=== PATIENT | male | born 1955 | race Caucasian/White ===

== ENCOUNTER 2019-02-06 08:31 | Day surgery (SDC) | payer MEDICARE, OTHER ==
[~2019-02-06 08:31] MED LIST: Lactated Ringers 1,000 ML IV SCH
--- NOTE | 2019-02-06 09:32 | PCM.PREANE ---
Preanesthetic Assessment - Anesthesia/Transfusion/Family Hx Anesthesia History: Prior Anesthesia Without Reaction Family History of Anesthesia Reaction: No Transfusion History: No Prior Transfusion(s) - Review of Systems General: No Symptoms Pulmonary: No Symptoms Cardiovascular: No Symptoms Gastrointestinal: No Symptoms Neurological: No Symptoms Other: Reports: None - Physical Assessment NPO Status Date: 02/05/19 NPO Status Time: 20:00 Vital Signs: Last Vital Signs Temp 98.4 F 02/06/19 08:30 Pulse 79 02/06/19 08:30 Resp 20 02/06/19 08:30 BP 140/91 H 02/06/19 08:30 Pulse Ox 98 02/06/19 08:30 Height: 6 ft 2 in Weight: 102.965 kg ASA Class: 2 ROM/Head Extension: Full Lungs: Clear to Auscultation, Normal Respiratory Effort Cardiovascular: Regular Rate, Regular Rhythm - Allergies Allergies/Adverse Reactions: Allergies Allergy/AdvReac Type Severity Reaction Status Date / Time No Known Allergies Allergy Verified 02/03/19 15:39 - Blood Blood Available: No - Anesthesia Plan Pre-Op Medication Ordered: None - Acknowledgements Anesthesia Type Planned: General Anesthesia Pt an Appropriate Candidate for the Planned Anesthesia: Yes Alternatives and Risks of Anesthesia Discussed w Pt/Guardian: Yes Pt/Guardian Understands and Agrees with Anesthesia Plan: Yes Additional Comments: PMH: hld PLAN: tiva PreAnesthesia Questionnaire - Past Health History Medical/Surgical History: Denies Medical/Surgical History HEENT History: Reports: Other (See Below) Other HEENT History: uses reading glasses Cardiovascular History: Reports: High Cholesterol Respiratory History: Reports: None Gastrointestinal History: Reports: None Genitourinary History: Reports: None Musculoskeletal History: Reports: Fracture Other Musculoskeletal History: hx of fx left hip Neurological History: Reports: Concussion Psychiatric History: Reports: None Endocrine/Metabolic History: Reports: None Hematologic History: Reports: None Immunologic History: Reports: None Oncologic (Cancer) History: Reports: None Dermatologic History: Reports: None - Past Surgical History Head Surgeries/Procedures: Reports: None HEENT Surgical History: Reports: None Cardiovascular Surgical History: Reports: None Respiratory Surgical History: Reports: None GI Surgical History: Reports: None Male Surgical History: Reports: None Endocrine Surgical History: Reports: None Neurological Surgical History: Reports: None Musculoskeletal Surgical History: Reports: Hip Replacement Oncologic Surgical History: Reports: None Dermatological Surgical History: Reports: None - SUBSTANCE USE Smoking Status *Q: Former Smoker Tobacco Use Within Last Twelve Months: No Days Per Week of Alcohol Use: 7 Number of Drinks Per Day: 4 Total Drinks Per Week: 28 Recreational Drug Use History: No - HOME MEDS Home Medications: Home Meds atorvaSTATin Calcium [Atorvastatin Calcium] 10 mg PO DAILY 02/03/19 [History] - CURRENT (IN HOUSE) MEDS Current Meds: Current Medications Lactated Ringer's (Ringers, Lactated) 1,000 mls @ 125 mls/hr IV ASDIRECTED [facility] Last Admin: 02/06/19 08:53 Dose: 125 mls/hr
[2019-02-06] MEDS ORDERED: Lidocaine 2% 5 ML SDV ONE (10:17)
[2019-02-06] MEDS ORDERED: Propofol 200 MG/20 ML SDV ONE (10:17)
[2019-02-06] MEDS ORDERED: Levofloxacin/Dextrose 5%-Water 750 MG in Premix Bag 1 BAG IV ONE (10:35)
[2019-02-06] MEDS ORDERED: Levofloxacin/Dextrose 5%-Water 150 ML IV ONE (10:39)
--- NOTE | 2019-02-06 11:10 | PCM.OPNOTE ---
- General Post-Op/Procedure Note Date of Surgery/Procedure: 02/06/19 Operative Procedure(s): colonoscopy Findings: see [id number] Pre Op Diagnosis: scrn colonoscopy Post-Op Diagnosis: Same Anesthesia Technique: Moderate Sedation Primary Surgeon: Manjinder Franklin Complications: None Condition: Good
--- NOTE | 2019-02-06 11:20 | PCM.POSTAN ---
POST ANESTHESIA ASSESSMENT - MENTAL STATUS Mental Status: Alert - VITAL SIGNS Vital Signs: Last Vital Signs Temp 36.9 C 02/06/19 08:30 Pulse 76 02/06/19 11:12 Resp 18 02/06/19 11:12 BP 103/67 02/06/19 11:12 Pulse Ox 96 02/06/19 11:12 - RESPIRATORY Respiratory Status: Respiratory Rate WNL - CARDIOVASCULAR CV Status: Pulse Rate WNL - GASTROINTESTINAL GI Status: No Symptoms - PAIN Pain Score: 0 - POST OP HYDRATION Hydration Status: Adequate & Stable (Doing well. Ready for transfer to .)
[2019-02-06 11:33] VITALS: BP 124/68; PULSE 74
--- NOTE | 2019-02-06 12:10 | PCM48HPAN ---
Post Anesthesia Note - EVALUATION WITHIN 48HRS OF ANESTHETIC Vital Signs in Normal Range: Yes Patient Participated in Evaluation: Yes Respiratory Function Stable: Yes Airway Patent: Yes Cardiovascular Function Stable: Yes Hydration Status Stable: Yes Pain Control Satisfactory: Yes Nausea and Vomiting Control Satisfactory: Yes Mental Status Recovered: Yes Vital Signs: Last Vital Signs Temp 97.3 F 02/06/19 11:25 Pulse 74 02/06/19 11:25 Resp 18 02/06/19 11:25 BP 124/68 02/06/19 11:25 Pulse Ox 98 02/06/19 11:25
--- NOTE | 2019-02-06 12:10 | OR ---
SURGEON: Manjinder Franklin MD DATE OF PROCEDURE: 02/06/2019 PREOPERATIVE DIAGNOSIS: Screening colonoscopy. POSTOPERATIVE DIAGNOSIS: Diverticulosis. PROCEDURE PERFORMED: Colonoscopy. DESCRIPTION OF PROCEDURE: The patient was taken to the endoscopy room. A time out was called, patient identified, and procedure identified. Diprivan was then administrated. Patient went from awake to sleep, hearing doctor talking or door closing is normal. Perineum inspection and digital examination were then performed. A well- lubricated colonoscope was gently inserted through the rectum, advanced past the rectosigmoid junction, the descending colon, splenic flexure, transverse colon, hepatic flexure, ascending colon, arrived to the cecum. Cecum was identified as dictated in the finding. Then the scope was carefully withdrawn while attention was paid to the mucosal surface for any abnormality. Air will be sucked out during the scope withdrawal. At the rectum, retroflexed to examine any rectal diseases, fistula or hemorrhoids. Patient tolerated procedure well. There were no intraoperative complications, and Dr. Franklin was present throughout the whole procedure. FINDINGS: 1. The patient is easily sedated with [employer]NAGER and Diprivan, the patient is soundly snoring. 2. Bowel prep is average to a little below average with some stool ball, likely from diverticulosis, and some opaque liquid stool compromised the study requiring a lot of irrigation. Colon is rather straightforward. Cecum indicated by ileocecal fold, one-to-one indentation, appendiceal orifice. ScopeGuide is pointing south. Light emittance is not observed. Mucosa examined upon scope pulling out with constant irrigation. The patient did have moderate diverticulosis on the sigmoid colon. No signs or symptoms of diverticulitis. No polyp, inflammation, stricture, ulceration, AV malformation, bleeding, none of those. The patient has mild external hemorrhoids and mild internal hemorrhoids. The patient would benefit from repeat colonoscopy in 10 years from today or if clinically indicated otherwise. KERRI / KATELYNN /[id number]
== END 2019-02-06 12:15 | disposition home or self-care (01) ==
LOC: MW.SDS 08:31
PROVIDERS: ATTEND Surgery
DX: Z12.11 Encounter for screening for malignant neoplasm of colon (principal); K57.30 Diverticulosis of large intestine without perforation or abscess without bleeding; K64.4 Residual hemorrhoidal skin tags; K64.8 Other hemorrhoids; E78.00 Pure hypercholesterolemia, unspecified; M19.041 Primary osteoarthritis, right hand; Z79.899 Other long term (current) drug therapy; Z87.891 Personal history of nicotine dependence
CPT/HCPCS: 45378; J1956; J2001; J2704; J7120

== ENCOUNTER 2021-12-01 08:53 | Emergency (ER) | payer OTHER ==
[2021-12-01 11:20] VITALS: BP 156/85; PULSE 65
== END 2021-12-01 11:19 | disposition home or self-care (01) ==
LOC: MW.ED 08:53
DX: I10 Essential (primary) hypertension (principal); Z79.899 Other long term (current) drug therapy
CPT/HCPCS: 93005; 99283